=== PATIENT | female | born 1975 | race Caucasian/White ===

== ENCOUNTER → 2017-12-30 | Outpatient (CLI) | payer BC, OTHER ==
[~2017-12-30] MED LIST: ALBU8.5H IH; BUPR-472 PO; DICY20TA70 PO; FLUT16SP19 ENA; HYDR-385 PO; IBU800 PO; KET10 PO; OXYC1TAB54 PO; ZOLP-358 PO; [UNRECOGNIZED DRUG - CODE] TP
--- NOTE | 2017-12-31 15:03 | RADIOLOGY IMAGING REPORT ---
FACILITY: [facility] PATIENT NAME: YONATAN DE LA GARZA : [id number] MR: [id number] V: [id number] EXAM DATE: [id number] ORDERING PHYSICIAN: AMADEO HERNANDEZ TECHNOLOGIST: Lucie Nuñez RDMS(ABD,OBGYN,BR),RVT PROCEDURE:US RIGHT BREAST COMPARISON:Made to the prior Right breast Ultrasound 01/16/17. INDICATIONS:six month follow up FINDINGS: In the 9 o'clock position of the Right breast again noted is the slightly lobular oval hypoechoic mass measuring 1 x 1.2 x 0.5cm and appears unchanged. There is no acoustic shadowing. Mild acoustic enhancement is noted. The mass is wider than tall. DIAGNOSTIC CATEGORY 3--PROBABLY BENIGN FINDING. RECOMMENDATIONS: SIX MONTH FOLLOW-UP ULTRASOUND: RIGHT BREAST. IMPRESSION: BIRADS 3: Probably benign finding. A 6 month follow-up Right breast Ultrasound is recommended to document stability of the well circumscribed hypoechoic mass 9 o'clock position of the Right breast. Of note the patient is due for her annual bilateral screening mammogram at this time. Dictated by: Maya Delgado M.D. on 12/30/2017 at 16:27 Transcribed by: ARSALAN on 12/31/2017 at 8:05 Approved by: Maya Delgado M.D. on 12/31/2017 at 15:02 [facility]
== END ==
LOC: US 01:29
PROVIDERS: ATTEND Nurse Practitioner Psychiatric/Mental Health
DX: N63.11 Unspecified lump in the right breast, upper outer quadrant (principal)